=== PATIENT | female | born 1995 | race African-American/Black ===

== ENCOUNTER 2017-06-18 18:16 | Emergency (ER) | payer OTHER ==
[~2017-06-18] VITALS: Ht 165.1 cm; Wt 70.0 kg
[2017-06-18 18:17] VITALS: BP 131/79; PULSE 84; RESP 16; TEMP 99.3; O2SAT 100
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
== END 2017-06-18 19:01 | disposition home or self-care (01) ==
LOC: NEPK 18:16
DX: S13.4XXA Sprain of ligaments of cervical spine, initial encounter (principal); V43.52XA Car driver injured in collision with other type car in traffic accident, initial encounter
CPT/HCPCS: 99282